=== PATIENT | female | born 1995 | race Caucasian/White ===

== ENCOUNTER 2022-06-16 10:14 | Emergency (ER) | payer BC, SELFPAY ==
[2022-06-16 10:22] VITALS: BP 126/88; PULSE 67; RESP 16; TEMP 36.8; O2SAT 98
[2022-06-16 11:02] LABS: Basophils # 0.1 10^3/uL (0.0-0.1); Basophils % 0.3 %; Hematocrit 43.9 % (37.0-47.0); Lymphocytes # 1.5 10^3/uL (0.8-4.8); Lymphocytes % 7.3 %; Mean Corpuscular HGB Conc 34.2 g/dL (30.0-36.0); Mean Corpuscular Hemoglobin 32.5 pg (28.0-34.0); Mean Corpuscular Volume 95.2 fl (81-99); Mean Platelet Volume 11.2 fL (7.4-10.4); Monocytes # 0.9 10^3/uL (0.2-0.9); Monocytes % 4.6 %; Neutrophils # 17.54 10^3/uL (1.8-7.7); Neutrophils % 87.4 %; Nucleated Red Blood Cells % 0 %; Platelet Count 297 10^3/cmm (130-400); Red Blood Count 4.61 10^6/uL (4.1-5.3); Red Cell Distribution Width 11.9 % (12.1-15.1); White Blood Count 20.1 10^3/uL (4.0-10.0)
--- NOTE | 2022-06-16 11:06 | ED_ITS ---
HPI - Nausea/Vomiting/Diarrhea General: Chief complaint: Nausea/Vomiting/Diarrhea Stated complaint: N/V x 3 days Time Seen by Provider: 06/16/22 11:06 History of Present Illness: Ms. Lazo is a 26-year-old lady without significant past medical or surgical history presenting to the emergency department due to nausea and vomiting. Onset of symptoms was acute approximately 3 days ago without specific known provoking event. She endorses numerous episodes of nonbloody nonbilious emesis associated with abdominal gnawing/cramping. Denies associated changes in bowel habits. Intensity symptoms is moderate to severe. Exacerbated by any p.o. intake. Does report on similar episode in the past resulting in hospitalization due to hypokalemia without clear etiology. No other specific changes in health, exacerbating, or alleviating factors identified. Onset (ago): day(s) Description of vomiting: watery Associated nausea: Yes Associated abdominal pain: Yes Location of pain: Diffuse Pain consistency: constant Severity: mild Quality: cramping and aching Exacerbating factors: eating Relieving factors: none Associated symtoms: Reports nausea Review of Systems General: Reports: 10 or more systems reviewed and unremarkable except in HPI and below GI: Reports: nausea PFSH ED PFSH: Medical History (Updated 06/24/22 @ 00:00 by JILLIAN Wiggins) No significant past medical history Surgical History (Updated 06/16/22 @ 11:23 by Ryley Santiago MD) No significant past surgical history Physical Exam Const: COMMON NORMALS: alert GENERAL APPEARANCE: cooperative and well developed HENMT: COMMON NORMALS: normocephalic and atraumatic HEAD & SCALP: normocephalic and atraumatic Eye: COMMON NORMALS: conjunctivae normal CONJUNCTIVA: Yes conjunctivae normal SCLERA: sclerae normal Neck/C-Spine: COMMON NORMALS: supple GENERAL: Yes trachea midline Resp: COMMON NORMALS: clear to auscultation bilaterally EFFORT & INSPECTION: Yes able to speak in complete sentences AUSCULTATION: clear to auscultation bilaterally Cardio: COMMON NORMALS: regular rate and regular rhythm RATE: regular rate RHYTHM: regular rhythm GI: COMMON NORMALS: Soft to palpation PALPATION: Yes Soft to palpation, Yes Tenderness to palpation present (GI) (Mild generalized), No Guarding due to palpation present (GI) and No Rigid due to palpation PERCUSSION: normal to percussion Extremity: GENERAL: Yes normal exam except as noted and No edema Neuro: COMMON NORMALS: moves all extremities SENSORIUM/ORIENTATION: Yes alert and No Orientation impaired Psych: COMMON NORMALS: mental status grossly normal and Normal thought process present THOUGHT PROCESS: Normal thought process present Course Vital Signs: Vital signs: Vital Signs Temperature 98.3 F 06/16/22 10:22 Pulse Rate 65 06/16/22 14:06 Respiratory Rate 16 06/16/22 14:06 Blood Pressure 135/86 06/16/22 14:06 Pulse Oximetry 98 06/16/22 10:22 Oxygen Delivery Me thod 06/16/22 10:22 MDM - Nausea/Vomiting/Diarrhea Medical Decision Making 26-year-old lady presenting with GI symptoms. Exam as above, patient is nontoxic and there is no evidence of acute surgical abdomen. Labs notable for leukocytosis, normal hemoglobin. Metabolic panel with mild dehydration. Viral studies negative. No evidence of urinary tract infection. Patient feels significantly proved with IV fluids and antiemetic. She is able to tolerate p.o. intake. I discussed imaging with the patient including risks and benefits and the patient is comfortable foregoing this at this time but given clinical exam and improvement of the symptoms is reasonable. The results of ED evaluation were discussed with the patient including prescriptions and/or symptomatic cares (if applicable) including appropriate and responsible use, followup plan, and return precautions. The patient verbalized understanding and felt safe for discharge. Medical Records I reviewed the patient's medical records. Lab Data I reviewed the patient's lab results. 06/16/22 10:55 06/16/22 10:55 Laboratory Results WBC 20.1 10^3/uL (4.0-10.0) H 06/16/22 10:55 RBC 4.61 10^6/uL (4.1-5.3) 06/16/22 10:55 Hgb 15.0 g/dL (11.5-15.3) 06/16/22 10:55 Hct 43.9 % (37.0-47.0) 06/16/22 10:55 MCV 95.2 fl (81-99) 06/16/22 10:55 MCH 32.5 pg (28.0-34.0) 06/16/22 10:55 MCHC 34.2 g/dL (30.0-36.0) 06/16/22 10:55 RDW 11.9 % (12.1-15.1) L 06/16/22 10:55 Plt Count 297 10^3/cmm (130-400) 06/16/22 10:55 MPV 11.2 fL (7.4-10.4) H 06/16/22 10:55 Neut % (Auto) 87.4 % 06/16/22 10:55 Lymph % (Auto) 7.3 % 06/16/22 10:55 Titus % (Auto) 4.6 % 06/16/22 10:55 Eos % (Auto) 0.0 % 06/16/22 10:55 Baso % (Auto) 0.3 % 06/16/22 10:55 Neut # (Auto) 17.54 10^3/uL (1.8-7.7) H 06/16/22 10:55 Lymph # (Auto) 1.5 10^3/uL (0.8-4.8) 06/16/22 10:55 Titus # (Auto) 0.9 10^3/uL (0.2-0.9) 06/16/22 10:55 Eos # (Auto) 0.0 10^3/uL (0.0-0.8) 06/16/22 10:55 Baso # (Auto) 0.1 10^3/uL (0.0-0.1) 06/16/22 10:55 Nucleated RBC % (auto) 0 % 06/16/22 10:55 Nucleated RBCs # 0.0 /100WBC 06/16/22 10:55 Sodium 135 mmol/L (136-145) L 06/16/22 10:55 Potassium 3.8 mmol/L (3.5-5.1) 06/16/22 10:55 Chloride 99 mmol/L (98-107) 06/16/22 10:55 Carbon Dioxide 22 mmol/L (22-29) 06/16/22 10:55 Anion Gap 17.8 (5-19) 06/16/22 10:55 BUN 12 mg/dL (6-20) 06/16/22 10:55 Creatinine 0.8 mg/dL (0.5-0.9) 06/16/22 10:55 GFR Calculation 88.1 mL/min (90-130) L 06/16/22 10:55 Glucose 130 mg/dL (65-115) H 06/16/22 10:55 Calculated Osmolality 282 mOsm/kg (285-295) L 06/16/22 10:55 Calcium 9.5 mg/dL (8.5-10.5) 06/16/22 10:55 Total Bilirubin 0.6 mg/dL (0.15-1.2) 06/16/22 10:55 AST 18 U/L (0-32) 06/16/22 10:55 ALT 16 U/L (0-33) 06/16/22 10:55 Alkaline Phosphatase 68 U/L (35-105) 06/16/22 10:55 Total Protein 8.3 g/dL (6.6-8.7) 06/16/22 10:55 Albumin 5.0 g/dL (3.5-5.2) 06/16/22 10:55 Globulin 3.3 g/dL (1.3-4.6) 06/16/22 10:55 Lipase 17 U/L (13-60) 06/16/22 10:55 HCG, Qual Negative (Negative) 06/16/22 10:55 Urine Color Yellow (Yellow) 06/16/22 12:24 Urine Appearance Clear (CLEAR) 06/16/22 12:24 Urine pH 7 (5-7) 06/16/22 12:24 Ur Specific [place] 1.010 (1.005-1.030) 06/16/22 12:24 Urine Protein Neg (Negative) 06/16/22 12:24 Urine Glucose (UA) Norm (Normal) 06/16/22 12:24 Urine Ketones 3+ (Negative) H 06/16/22 12:24 Urine Blood 2+ (Negative) H 06/16/22 12:24 Urine Nitrate Negative (Negative) 06/16/22 12:24 Urine Bilirubin 1+ (Negative) H 06/16/22 12:24 Urine Urobilinogen Norm mg/dL (Negative) 06/16/22 12:24 Ur Leukocyte Esterase Negative (Negative) 06/16/22 12:24 Urine RBC 0-4 /hpf (0-2) H 06/16/22 12:24 Urine WBC 0-4 /hpf (0-5) H 06/16/22 12:24 Ur Squamous Epith Cells 0-4 /hpf (0-5) H 06/16/22 12:24 Amorphous Sediment Not Reportable 06/16/22 12:24 Urine Bacteria 1+ /hpf (NONE) H 06/16/22 12:24 Influenza Type A Ag negative (Negative) 06/16/22 12:30 Influenza Type B Ag negative (Negative) 06/16/22 12:30 SARS-CoV-2 Ag (Rapid) negative (Negative) 06/16/22 12:30 Discharge Plan Discharge Patient Disposition: Home Clinical Impression: Nausea and vomiting Condition: Stable Prescriptions: New ondansetron 4 mg tablet,disintegrating 4 mg PO Q8H PRN (Reason: nausea and vomiting) Qty: 15 0RF Discharge Orders: Discharge ED (Routine); Ordered 06/16/22 Ordered By: Ryley Santiago Discharge Diet: Advance as tolerated and Clear Liquid Discharge Activity: Increase activity as tolerated Patient Instructions: Acute Nausea and Vomiting (ED), Abdominal Pain (ED) Activity Restrictions/Additional Instructions: Thank you for visiting the emergency department. You were seen and evaluated for nausea and vomiting. The exact cause of your symptoms is unclear though does not appear to need hospitalization or further ED evaluation at this time. We are pleased that you had symptom improvement. I will message case management for follow-up with a primary care provider and general surgery for consideration of endoscopy given recurrent symptoms. Return to the emergency department for uncontrolled symptoms, persistent or worsening abdominal pain, or anything else that you are concerned about and feel needs emergency department evaluation. Coding Level of Care Code ED [facility] Front Desk Clerk for Stephanie [facility] Exam Comprehensive
[2022-06-16 11:18] LABS: HCG, Serum Qual Negative (Negative)
[2022-06-16 11:23] LABS: Alanine Aminotransferase 16 U/L (0-33); Alkaline Phosphatase 68 U/L (35-105); Anion Gap 17.8 (5-19); Aspartate Amino Transferase 18 U/L (0-32); Blood Urea Nitrogen 12 mg/dL (6-20); Calcium 9.5 mg/dL (8.5-10.5); Carbon Dioxide 22 mmol/L (22-29); Chloride 99 mmol/L (98-107); Globulin 3.3 g/dL (1.3-4.6); Glomerular Filtration Rate 88.1 mL/min (90-130); Glucose 130 mg/dL (65-115); Osmolality Calculated 282 mOsm/kg (285-295); Potassium 3.8 mmol/L (3.5-5.1); Sodium 135 mmol/L (136-145); Total Bilirubin 0.6 mg/dL (0.15-1.2); Total Protein 8.3 g/dL (6.6-8.7)
[2022-06-16] MEDS: sodium chloride 0.9% 1,000 ML 999 ML IV (11:26)
[2022-06-16] MEDS: ondansetron 2 mg/ML SDV 2 mL 4 MG IVP (11:27)
[2022-06-16 11:35] LABS: Lipase 17 U/L (13-60)
[2022-06-16 13:07] LABS: Influenza A by IFA negative (Negative); Influenza B by IFA negative (Negative)
[2022-06-16 13:08] LABS: SARS Covid-2 Antigen negative (Negative)
[2022-06-16 13:49] LABS: Urine Appearance Clear (CLEAR); Urine Color Yellow (Yellow); pH Urine 7 (5-7)
[2022-06-16 13:50] LABS: Add Urine Microscopic? YES; Bacteria Urine 1+ /hpf; Bilirubin Urine 1+ (Negative); Blood Urine 2+ (Negative); Glucose Urine UA Norm (Normal); Ketones Urine 3+ (Negative); Leukocyte Esterase Urine Negative (Negative); Nitrate Urine Negative (Negative); Protein Urine Neg (Negative); RBC Urine 0-4 /hpf (0-2); Squamous Epithelial Cell Urine 0-4 /hpf (0-5); Urobilinogen Urine Norm (Negative); WBC Urine 0-4 /hpf (0-5)
[2022-06-16 14:06] VITALS: BP 135/86; PULSE 65; RESP 16
--- NOTE | 2022-06-16 14:51 | DCPLANNER ---
club manager had message to speak with patient about getting established with a primary care physician. club manager called phone number [phone], unable to speak with patient and unable to leave a voicemail for patient.
--- NOTE | 2022-06-16 14:53 | DCPLANNER ---
Addendum entered by Jacquelyn Carrero 06/24/22 10:59: manager access received the following message from general surgery regarding follow up appointment: no contact, mailing letter 06/19 On 06/19/22 @ 11:09 Elizabeth Wynne Wrote To [employer] Front [employer] [facility] mail letter On 06/18/22 @ 15:11 Jayme Mabry Wrote To [employer] not accepting messages 06/18 On 06/17/22 @ 10:35 Yudith Scott Wrote To [employer] not accepting messages at this time. Will try again later Original Note: manager access had message to schedule a follow up appointment for patient with general surgery. manager access sent patients information to the front office staff at general surgery. Patients information will be printed and reviewed. Clinic will call patient with appointment information.
== END 2022-06-16 14:08 | disposition home or self-care (01) ==
PROVIDERS: Physician Assistant; Emergency Provider Emergency Medicine
DX: R11.2 Nausea with vomiting, unspecified (principal); Z20.822 Contact with and (suspected) exposure to COVID-19
CPT/HCPCS: 36415; 80053; 81001; 83690; 84703; 85025; 87426; 87804; 96361; 96374; 99284; J2405; J7030